=== PATIENT | female | born 1960 | race Caucasian/White ===

== ENCOUNTER 2016-05-08 15:33 | Emergency (ER) | payer MEDICAID ==
[~2016-05-08] VITALS: Ht 154.9 cm; Wt 61.2 kg
[~2016-05-08 15:33] MED LIST: CETIRIZINE10 MG PO; benadryl
[2016-05-08 15:43] VITALS: BP 102/67
--- NOTE | 2016-05-08 16:15 | NUR ---
PATIENT PRESENTS TO ED WITH C/O NASAL CONGESTION, EAR PAIN, GENERALIZED BODY ACHES, FATIGUE,DIZZINESS X 3 WKS . DENIES N/V/D; SKIN IS PINK/WARM/DRY; AAOX4 WITH EVEN AND STEADY GAIT; LUNGS CLEAR BL; HR EVEN AND REGULAR;PATIENT STATES PAIN OF 8/10 AT THIS TIME; VSS; PATIENT POSITIONED FOR COMFORT; HOB ELEVATED; BEDRAILS UP X2; BED DOWN. ER MD EVALUATED PT.
[2016-05-08 16:25] VITALS: BP 96/60
--- NOTE | 2016-05-08 16:30 | NUR ---
Patient discharged with v/s stable. Written and verbal after care instructions given and explained. Patient alert, oriented and verbalized understanding of instructions. Ambulatory with steady gait. All questions addressed prior to discharge. ID band removed. Patient advised to follow up with PMD. Rx of FRANKLIN-D, FLONASE NASAL SPRAY, KETOTIFEN OPTHALMIC given. Patient educated on indication of medication including possible reaction and side effects. Opportunity to ask questions provided and answered.
== END 2016-05-08 16:30 | disposition home or self-care (01) ==
LOC: MED 15:33
DX: J31.0 Chronic rhinitis (principal); H10.10 Acute atopic conjunctivitis, unspecified eye; J32.9 Chronic sinusitis, unspecified